=== PATIENT | female | born 1940 | race Caucasian/White ===

== ENCOUNTER 2016-05-16 07:55 | Emergency (ER) | payer OTHER ==
[~2016-05-16] VITALS: Ht 172.7 cm; Wt 56.7 kg
[2016-05-16] MEDS ORDERED: ACETAMINOPHEN ES 500 MG TABLET ONE (08:07)
[2016-05-16] MEDS ORDERED: ACETAMINOPHEN ES 500 MG TABLET PO ONE (08:30)
[2016-05-16 08:51] LABS: KETONES,URINE TRACE (NEGATIVE); LEUKOCYTE ESTERASE ,URINE NEGATIVE (NEGATIVE)
[2016-05-16 09:21] VITALS: BP 126/81
[2016-05-16 09:43] LABS: ADD UA MICROSCOPIC YES
[2016-05-16 12:46] LABS: ADD URINE CULTURE NO; RBC,URINE NONE SEEN /HPF (0-2); WBC,URINE 0-2 /HPF (0-3)
== END 2016-05-16 09:51 | disposition home or self-care (01) ==
LOC: ER 07:58
DX: S32.029A Unspecified fracture of second lumbar vertebra, initial encounter for closed fracture (principal); S32.049A Unspecified fracture of fourth lumbar vertebra, initial encounter for closed fracture; X58.XXXA Exposure to other specified factors, initial encounter; Y93.9 Activity, unspecified; Y92.9 Unspecified place or not applicable; Y99.9 Unspecified external cause status
CPT/HCPCS: 72110; 81001; 99284; A4606; 81000-TC; Z7610